=== PATIENT | male | born 1995 | race Caucasian/White ===

== ENCOUNTER 2019-04-05 14:52 | Emergency (ER) | payer MEDICAID ==
[~2019-04-05] VITALS: Ht 193 cm; Wt 129.7 kg
[~2019-04-05 14:52] MED LIST: PROM25SU34 RC; pain medicine PO; zofran PO
[2019-04-05] MEDS ORDERED: HALOPERIDOL 5 MG/ML IV ONE (15:30)
[2019-04-05] MEDS ORDERED: HALOPERIDOL 5 MG/ML ONE (15:33)
--- NOTE | 2019-04-05 15:51 | NUR ---
Medicated as ordered, will cont to monitor
[2019-04-05 15:54] LABS: ALANINE AMINOTRANSFERASE 62 U/L (12-78); ALBUMIN 4.4 g/dL (3.4-5.0); ANION GAP 11 mmol/L (5-15); BASOPHILS # (AUTO) 0.03 x10^3/uL (0-0.1); BASOPHILS % (AUTO) 0 % (0-1); CALCIUM 9.7 mg/dL (8.5-10.1); CHLORIDE 108 mmol/L (98-107); CREATININE 1.22 mg/dL (0.7-1.3); EOSINOPHILS % (AUTO) 0 % (1-7); LYMPHOCYTES # (AUTO) 1.04 x10^3/uL (1-3.4); LYMPHOCYTES % (AUTO) 7 % (22-44); MD NO; MEAN CORPUSCULAR HEMOGLOBIN 28.8 pg (27.5-34.5); MEAN CORPUSCULAR HGB CONC 33.6 g/dL (33.2-36.2); MEAN CORPUSCULAR VOLUME 85.8 fL (81-97); MEAN PLATELET VOLUME 7.3 fL (7.4-10.4); MONOCYTES # (AUTO) 0.62 x10^3/uL (0.2-0.8); MONOCYTES % (AUTO) 4 % (2-9); NEUTROPHILS # (AUTO) 13.24 x10^3/uL (1.8-6.8); NEUTROPHILS % (AUTO) 89 % (42-75); PLATELET COUNT 340 x10^3/uL (130-400); RED BLOOD COUNT 5.69 x10^6/uL (4.38-5.82); RED CELL DISTRIBUTION WIDTH 12.9 % (9.4-14.8)
[2019-04-05 15:56] LABS: ALKALINE PHOSPHATASE 113 U/L (45-117); BILIRUBIN,TOTAL 0.4 mg/dL (0.2-1.0); TOTAL PROTEIN 8.4 g/dL (6.4-8.2)
[2019-04-05] MEDS ORDERED: DIPHENHYDRAMINE 50 MG/ML, 1ML IVPush ONE (17:00)
[2019-04-05] MEDS ORDERED: MORPHINE SULFATE 4 MG/ML, 1ML IVPush PRN (17:00)
[2019-04-05] MEDS ORDERED: METOCLOPRAMIDE 5 MG/ML, 2ML IVPush ONE (17:00)
[2019-04-05] MEDS ORDERED: METOCLOPRAMIDE 5 MG/ML, 2ML ONE (17:13)
[2019-04-05] MEDS ORDERED: MORPHINE SULFATE 4 MG/ML, 1ML ONE (17:13)
[2019-04-05] MEDS ORDERED: DIPHENHYDRAMINE 50 MG/ML, 1ML ONE (17:13)
--- NOTE | 2019-04-05 17:19 | NUR ---
Pt medicated for pain, pending d/c. No needs at this time
--- NOTE | 2019-04-05 17:28 | NUR ---
REPORT FROM CARLOS VILLAR. PATIENT TO BE D/C.
--- NOTE | 2019-04-05 17:36 | NUR ---
Report to Grayson GONZALEZ
[2019-04-05 17:46] VITALS: BP 165/75
== END 2019-04-05 17:50 | disposition home or self-care (01) ==
LOC: ED 17:40
DX: R11.2 Nausea with vomiting, unspecified (principal); F12.188 Cannabis abuse with other cannabis-induced disorder
CPT/HCPCS: 36415; 80053; 83690; 85025; 96374; 96375; 99283; J1200; J1630; J2270; J2765

== ENCOUNTER 2019-10-21 10:05 | Emergency (ER) | payer MEDICAID ==
[~2019-10-21] VITALS: Ht 193 cm; Wt 119.0 kg
[2019-10-21] MEDS ORDERED: ONDANSETRON 2MG/ML, 2ML ONE (10:57)
[2019-10-21] MEDS ORDERED: FAMOTIDINE 20 MG/2 ML ONE (10:57)
[2019-10-21] MEDS ORDERED: SODIUM CHLORIDE 0.9% 1,000ML IVBOLUS ONE (11:00)
[2019-10-21] MEDS ORDERED: FAMOTIDINE 20 MG/2 ML IV ONE (11:00)
[2019-10-21] MEDS ORDERED: ONDANSETRON 2MG/ML, 2ML IVPush ONE (11:00)
[2019-10-21] MEDS ORDERED: MAALOX/HYOSCYAMINE/LIDOCAINE 45 ML BTL ONE (11:14)
[2019-10-21] MEDS ORDERED: MAALOX/HYOSCYAMINE/LIDOCAINE 45 ML BTL PO ONE (11:30)
[2019-10-21 11:56] LABS: BASOPHILS # (AUTO) 0.05 x10^3/uL (0-0.1); BASOPHILS % (AUTO) 0 % (0-1); EOSINOPHILS # (AUTO) 0.02 x10^3/uL (0-0.4); EOSINOPHILS % (AUTO) 0 % (1-7); LYMPHOCYTES # (AUTO) 1.73 x10^3/uL (1-3.4); LYMPHOCYTES % (AUTO) 14 % (22-44); MD NO; MEAN CORPUSCULAR HEMOGLOBIN 28.9 pg (27.5-34.5); MEAN CORPUSCULAR HGB CONC 33.8 g/dL (33.2-36.2); MEAN CORPUSCULAR VOLUME 85.4 fL (81-97); MEAN PLATELET VOLUME 7.7 fL (7.4-10.4); MONOCYTES # (AUTO) 1.31 x10^3/uL (0.2-0.8); MONOCYTES % (AUTO) 11 % (2-9); NEUTROPHILS # (AUTO) 9.01 x10^3/uL (1.8-6.8); NEUTROPHILS % (AUTO) 74 % (42-75); PLATELET COUNT 377 x10^3/uL (130-400); RED BLOOD COUNT 5.79 x10^6/uL (4.38-5.82); RED CELL DISTRIBUTION WIDTH 13.2 % (9.4-14.8)
[2019-10-21 12:05] LABS: ALBUMIN 5.2 g/dL (3.4-5.0); ANION GAP 10 mmol/L (5-15); CHLORIDE 100 mmol/L (98-107)
[2019-10-21 12:08] LABS: ALANINE AMINOTRANSFERASE 64 U/L (12-78); ALKALINE PHOSPHATASE 131 U/L (45-117); BILIRUBIN,TOTAL 1.3 mg/dL (0.2-1.0)
[2019-10-21] MEDS ORDERED: PROMETHAZINE 25 MG/ML, 1ML IM ONE (12:30)
[2019-10-21] MEDS ORDERED: PROMETHAZINE 25 MG/ML, 1ML ONE (12:34)
[2019-10-21] MEDS ORDERED: MORPHINE SULFATE 4 MG/ML, 1ML ONE ×2 (13:11→14:13)
--- NOTE | 2019-10-21 13:15 | NUR ---
PT TO BR INDEPENDENTLY.
[2019-10-21] MEDS: MORPHINE SULFATE 4 MG/ML, 1ML IVPush PRN ×2 (13:17→14:19)
--- NOTE | 2019-10-21 13:23 | NUR ---
PT TO CT
[2019-10-21] MEDS ORDERED: OMNIPAQUE 350 MG/ML, 100ML BOTTLE ONE (13:32)
[2019-10-21 14:55] LABS: MICROSCOPIC INDICATED
[2019-10-21 15:23] VITALS: BP 122/74
== END 2019-10-21 15:25 | disposition home or self-care (01) ==
LOC: ED 11:17
DX: E87.6 Hypokalemia (principal); R11.2 Nausea with vomiting, unspecified; R10.84 Generalized abdominal pain
CPT/HCPCS: 36415; 74177; 80053; 81001; 85025; 87086; 96361; 96372; 96374; 96375; 96376; 99285; J2270; J2405; J2550; J3490; J7030; Q9967

== ENCOUNTER 2019-12-29 18:39 | Emergency (ER) | payer MEDICAID ==
[~2019-12-29] VITALS: Ht 193 cm; Wt 119.0 kg
[2019-12-29] MEDS ORDERED: ONDANSETRON ODT 4 MG ONE (18:52)
--- NOTE | 2019-12-29 18:53 | NUR ---
GIVEN PO ZOFRAN PER KAM GONZALES
[2019-12-29] MEDS ORDERED: ONDANSETRON ODT 4 MG PO ONE (19:00)
[2019-12-29] MEDS ORDERED: SODIUM CHLORIDE FLUSH 10ML SYR IVF ONE (19:00)
[2019-12-29] MEDS ORDERED: PROMETHAZINE 25 MG/ML, 1ML IM ONE ×2 (19:00→23:00)
[2019-12-29] MEDS ORDERED: SODIUM CHLORIDE 0.9% 1,000ML IVBOLUS ONE (19:00)
[2019-12-29 19:38] LABS: BASOPHILS # (AUTO) 0.04 x10^3/uL (0-0.1); BASOPHILS % (AUTO) 0 % (0-1); EOSINOPHILS # (AUTO) 0.01 x10^3/uL (0-0.4); EOSINOPHILS % (AUTO) 0 % (1-7); LYMPHOCYTES # (AUTO) 0.98 x10^3/uL (1-3.4); LYMPHOCYTES % (AUTO) 7 % (22-44); MD NO; MEAN CORPUSCULAR HGB CONC 34.1 g/dL (33.2-36.2); MEAN PLATELET VOLUME 7.3 fL (7.4-10.4); MONOCYTES # (AUTO) 0.47 x10^3/uL (0.2-0.8); MONOCYTES % (AUTO) 3 % (2-9); NEUTROPHILS # (AUTO) 12.07 x10^3/uL (1.8-6.8); NEUTROPHILS % (AUTO) 89 % (42-75); PLATELET COUNT 403 x10^3/uL (130-400); RED BLOOD COUNT 5.67 x10^6/uL (4.38-5.82); RED CELL DISTRIBUTION WIDTH 12.5 % (9.4-14.8)
[2019-12-29 19:46] LABS: ALBUMIN 4.7 g/dL (3.4-5.0); ANION GAP 12 mmol/L (5-15); CALCIUM 10.2 mg/dL (8.5-10.1); CHLORIDE 107 mmol/L (98-107)
[2019-12-29 19:54] LABS: ALANINE AMINOTRANSFERASE 54 U/L (12-78); ALKALINE PHOSPHATASE 115 U/L (45-117); BILIRUBIN,TOTAL 0.9 mg/dL (0.2-1.0); CREATININE 1.15 mg/dL (0.7-1.3); TOTAL PROTEIN 8.8 g/dL (6.4-8.2)
--- NOTE | 2019-12-29 20:44 | NUR ---
VITALS CHECKED, PT AWAITING ROOM AVAILABILITY
[2019-12-29] MEDS ORDERED: ONDANSETRON 2MG/ML, 2ML ONE (21:25)
[2019-12-29] MEDS ORDERED: MORPHINE SULFATE 4 MG/ML, 1ML ONE (21:26)
[2019-12-29] MEDS ORDERED: MORPHINE SULFATE 4 MG/ML, 1ML IVPush PRN (21:30)
[2019-12-29] MEDS ORDERED: ONDANSETRON 2MG/ML, 2ML IVPush ONE (21:30)
--- NOTE | 2019-12-29 21:47 | NUR ---
24/M. Abd pain since 5pm today. Hx of abdominal pain. Waiting for insurance to see a GI doc. N/V. Denies diarrhea.
[2019-12-29] MEDS ORDERED: PROMETHAZINE 25 MG/ML, 1ML ONE (22:46)
--- NOTE | 2019-12-29 22:52 | NUR ---
Pt pain /10. Improving from 01/12. PO challenge: passed with 8oz water. No vomitting. Pt tolerated fairly well.
[2019-12-29 22:53] VITALS: BP 136/71
== END 2019-12-29 23:13 | disposition home or self-care (01) ==
LOC: ED 21:00
DX: R11.2 Nausea with vomiting, unspecified (principal); R10.84 Generalized abdominal pain
CPT/HCPCS: 36415; 76700; 80053; 83690; 85025; 96361; 96372; 96374; 96375; 99285; J2270; J2405; J2550; J7030